=== PATIENT | female | born 1960 | race African-American/Black ===

== ENCOUNTER 2019-09-04 09:55 | Emergency (ER) | payer SELFPAY ==
[2019-09-04] MEDS: OXYCODONE HCL/ACETAMINOPHEN 5/325MG TABLET PO ONE (14:00)
[2019-09-04 16:14] VITALS: BP 130/75
== END 2019-09-04 16:14 | disposition home or self-care (01) ==
LOC: ER 09:55
DX: I82.501 Chronic embolism and thrombosis of unspecified deep veins of right lower extremity (principal); M25.561 Pain in right knee; K21.9 Gastro-esophageal reflux disease without esophagitis; E11.9 Type 2 diabetes mellitus without complications; I10 Essential (primary) hypertension; Z90.49 Acquired absence of other specified parts of digestive tract
CPT/HCPCS: 93971; 99284; Z7610